=== PATIENT | female | born 1970 | race Caucasian/White ===

== ENCOUNTER 2019-12-13 18:35 | Emergency (ER) | payer OTHER, SELFPAY ==
--- NOTE | 2019-12-13 18:27 | ECG_ITS ---
APPROVED REPORT Exam: Resting ECG HR:68 bpm ECG Measurements Heart Rate 68 AXES VA 144 P 26 QRSd 98 QRS 3 QT 408 T 56 QTc 433 <Conclusion> Normal sinus rhythm Isolated Q in III Abnormal ECG Electronically signed by : Anil Calderon, 12/16/2019 17:11:56
[2019-12-13 18:38] VITALS: BP 154/62; PULSE 66; RESP 18; TEMP 37.1; O2SAT 98; BMI 33.3
--- NOTE | 2019-12-13 18:40 | HMH.EDGENADL ---
ED Disposition Clinical Impression: Congestive heart failure Qualifiers: Heart failure type: unspecified Heart failure chronicity: acute on chronic Qualified Code(s): I50.9 - Heart failure, unspecified Chest pain Qualifiers: Chest pain type: precordial pain Qualified Code(s): R07.2 - Precordial pain Disposition: Xfer Short-Term Hosp Condition on Discharge: Fair Referrals: PCP,No [Primary Care Provider] - - Critical Care Critical Care Time: Yes Attestation: On , the high probability of a clinically significant, sudden or life threatening deterioration of the following system(s) required my full and direct attention, intervention and personal management. The time I documented below is in addition to time spent performing reported procedures but includes the following listed in this critical care notation. Total Critical Care Time: 40 Vital system(s) involved:: Circulatory Failure My critical care processes included: Assessment & monitoring of V/S, Initial and Re-exams, Data Review/Interpretation, Coordinating Care, Medication Orders and management, Documentation Medical Decision Making - Medical Records Medical records reviewed: Yes: I reviewed the patient's medical records. - Samy Inquiry Pt receiving controlled substance: No Vital Signs: 12/13/19 18:38 12/13/19 19:00 Temperature 98.7 F Temperature Source Oral Pulse Rate [Right Radial] 66 69 Respiratory Rate 18 Blood Pressure [Right Arm] 154/62 H 156/61 H Blood Pressure Mean [Right Arm] 92 92 Blood Pressure Source [Right Arm] Automatic Cuff Automatic Cuff Blood Pressure Position [Right Arm] Sitting Sitting 02 Sat by Pulse Oximetry 98 96 Oxygen Delivery Method Room Air Room Air - Lab Data Lab results reviewed: Yes: I reviewed the patient's lab results. Lab Results 12/13/19 18:38: WBC 10.8, RBC 3.96 L, Hgb 10.4 L, Hct 31.3 L, MCV 79.2 L, MCH 26.2 L, MCHC 33.0, RDW 18.4 H, Plt Count 290, MPV 9.9, Neut % (Auto) 64.2, Lymph % (Auto) 28.4, [place] % (Auto) 5.2, Eos % (Auto) 2.0, Baso % (Auto) 0.2, Neut # (Auto) 7.0, Lymph # (Auto) 3.1, [place] # (Auto) 0.6, Eos # (Auto) 0.2, Baso # (Auto) 0.0 12/13/19 18:38: Sodium 137, Potassium 4.2, Chloride 104, Carbon Dioxide 24, Anion Gap 13.2, BUN 13, Creatinine 0.80, Estimated Creat Clear 120, Estimated GFR 76, Est GFR ( Amer) 92, Glucose 92, Calcium 8.5, Troponin I < 0.01 12/13/19 18:38: PT 43.5 H, INR 4.67 H 12/13/19 18:38: NT-Pro-B Natriuret Pep 838 H Result diagrams: 12/13/19 18:38 12/13/19 18:38 Orders (Tests/Meds): ED MEDICATIONS Discontinued Medications Generic Name Dose Route Start Last Admin Trade Name Freq PRN Reason Stop Dose Admin Furosemide 40 mg 12/13/19 19:33 12/13/19 19:58 Lasix 40mg/4ml Vial IV 12/13/19 19:34 40 mg ONCE ONE Administration Nitroglycerin 1 gm 12/13/19 19:32 12/13/19 19:58 Nitroglycerin 1 Inch Oint Udp TD 12/13/19 19:33 1 gm ONCE ONE Administration ORDERS Category Date Time Status Chest XR -- portable [XR chest portable] Stat Exams 12/13/19 18:51 Taken Troponin I Q3H Lab 12/13/19 22:00 Ordered Troponin I Q3H Lab 12/14/19 01:00 Ordered - Radiology Data #1 Image(s): Chest Image Reviewed: Yes I reviewed the patient's radiology image Cardiomegaly with vascular congestion - ECG Data Tracing #1 EKG interpreted by David Samuels MD: Rhythm: sinus Rate: 68 [place]: normal Ectopy: none Conduction: normal ST Segment Changes: none T Wave Changes: none Q Waves: none No evidence of acute ischemia or injury No prior EKGs available for comparison. - Physician Consults Physician Consulted: Backer - [place] hospitalist Time: 20:18 Reason -: Transfer to another facilty Comment/Response: Accepts patient transfer General Adult HPI - General Stated complaint: chest pain, soa Time Seen by Provider: 12/13/19 18:57 - History of Present Illness HPI narrative: Patient complains of chest pain, shortness of breath, sw
--- NOTE | 2019-12-13 18:51 | XR_ITS ---
PROCEDURE: XR CHEST PORTABLE CLINICAL HISTORY: chest pain COMPARISON: No exams were available for comparison FINDINGS: CARDIOMEGALY WITH MILD PULMONARY VENOUS CONGESTION AND MILD INTERSTITIAL EDEMA SUGGESTING MILD CHF. The lungs are clear without infiltrates, suspicious nodules, or pleural effusions. No acute bony abnormalities. IMPRESSION: MILD CHF Dictated by: Ney Wise MD 12/13/2019 20:49 Electronically signed by Ney Wise MD in [place] 12/13/2019 20:49
--- NOTE | 2019-12-13 18:57 | PC.NURSE ---
notified rad of cxr order
[2019-12-13 19:00] VITALS: BP 156/61; PULSE 69; O2SAT 96
--- NOTE | 2019-12-13 19:00 | PC.NURSE ---
pt is trying to contact her to get the rest of her medication list
--- NOTE | 2019-12-13 19:10 | PC.NURSE ---
shift change report given to rebeca wiggins and ellisrn
[2019-12-13 19:17] LABS: Basophils % 0.2 % (0.1-2.0); Eosinophils # 0.2 K/mm3 (0.0-0.4); Hematocrit 31.3 % (37.0-47.0); Hemoglobin 10.4 g/dL (12.2-16.2); Lymphocytes # 3.1 K/mm3 (0.7-4.5); Lymphocytes % 28.4 % (10-50); Mean Corpuscular Hemoglobin 26.2 pg (27.0-31.2); Mean Corpuscular Volume 79.2 fl (81-99); Mean Platelet Volume 9.9 fl (7.4-10.4); Monocytes # 0.6 K/mm3 (0.1-1.0); Monocytes % 5.2 % (1.7-9.3); Neutrophils % 64.2 % (37.0-80.0); Platelet Count 290 K/mm3 (142-424); Red Blood Count 3.96 M/mm3 (4.20-5.40); Red Cell Distribution Width 18.4 % (11.5-17.5); White Blood Count 10.8 K/mm3 (4.8-10.8)
[2019-12-13 19:19] LABS: Chloride 104 mmol/L (98-107); Potassium 4.2 mmoL/L (3.5-5.1); Sodium 137 mmol/L (136-145)
[2019-12-13 19:22] LABS: Anion Gap 13.2 mEq/L (5-15); Blood Urea Nitrogen 13 mg/dl (7-17); Calcium 8.5 mg/dl (8.4-10.2); Carbon Dioxide 24 mmol/L (22.0-30.0); Creatinine Clearance Estimated 120 mL/min (50-200); Estimated Glomerular Filt Rate 76 ml/min (>60); GFR (African American) 92 ML/MIN (>60); Glucose 92 mg/dl (74-100)
[2019-12-13 19:31] LABS: NT Pro Brain Natriuretic Pep. 838 pg/mL (0-125)
[2019-12-13 19:37] LABS: INR 4.67 (0.9-1.1); Prothrombin Time 43.5 seconds (9.4-11.8)
[2019-12-13 19:38] LABS: Troponin I < 0.01 ng/ml (0.00-0.034)
--- NOTE | 2019-12-13 20:07 | PC.NURSE ---
spoke with minal at [facility] attending for Dr. Samuels
--- NOTE | 2019-12-13 20:13 | PC.NURSE ---
Dr Denton consulting with Lyn
--- NOTE | 2019-12-13 20:15 | PC.NURSE ---
pt accepted by Dr. Rubi. waiting on a bed assignment
[2019-12-13 21:52] VITALS: BP 124/42; PULSE 66; RESP 16; TEMP 37.1; O2SAT 97
--- NOTE | 2019-12-13 21:53 | PC.NURSE ---
[facility] called [facility] with room assignment
--- NOTE | 2019-12-13 22:20 | PC.NURSE ---
Report called to [facility] chavez called for transport
--- NOTE | 2019-12-13 22:41 | PC.NURSE ---
kathy here for transport
[2019-12-13 22:42] VITALS: BP 132/72; PULSE 62; RESP 14; TEMP 37.1; O2SAT 98
== END 2019-12-13 22:44 | disposition short-term general hospital (02) ==
PROVIDERS: Emergency Provider Emergency Medicine
DX: I50.23 Acute on chronic systolic (congestive) heart failure (principal); I10 Essential (primary) hypertension; Z79.899 Other long term (current) drug therapy
CPT/HCPCS: 71045; 80048; 83880; 84484; 85025; 85610; 93005; 96374; 99285